=== PATIENT | male | born 1965 | race Caucasian/White ===

== ENCOUNTER 2020-08-30 07:19 | Outpatient (CLI) | payer OTHER, SELFPAY ==
[2020-08-30 07:31] LABS: Hematocrit 43.8 % (42.0-52.0); Hemoglobin 14.7 g/dL (14.0-18.0); Mean Corpuscular HGB Conc 33.6 g/dl (32-36); Mean Corpuscular Hemoglobin 29.5 pg (26-34); Mean Platelet Volume 10.2 fl (7.4-10.4); Platelet Count Result 166 k/mm3 (150-375); Red Blood Count 4.98 M/mm3 (4.6-6.20); White Blood Count 3.9 K/mm3 (4.5-10.0)
[2020-08-30 07:59] LABS: Alanine Aminotransferase 21 U/L (4-50); Albumin Level 4.1 g/dL (3.5-5.1); Alkaline Phosphatase 58 U/L (38-126); Anion Gap 4 mmol/L (8-16); Aspartate Amino Transferase 26 U/L (17-59); Bilirubin,Total 0.6 mg/dL (0.2-1.3); Blood Urea Nitrogen 20 mg/dL (9-20); Calcium 8.9 mg/dL (8.4-10.2); Carbon Dioxide 31 mmol/L (22-30); Chloride 105 mmol/L (98-107); Cholesterol 227 mg/dL (0-200); Estimated Glomerular Filt Rate > 60; Glucose 119 mg/dL (75-110); HDL Direct 54 mg/dL; Sodium 140 mmol/L (137-145); Triglycerides 73 mg/dL (<150)
[2020-08-30 08:11] LABS: LDL Cholesterol Direct 147 mg/dL
[2020-08-30 08:27] LABS: Thyroid Stimulating Hormone Reflex 0.895 uIU/mL (0.465-4.68)
[2020-08-30 12:51] LABS: Prostate Specific Antigen 0.4 ng/mL (< OR = 4.0)
== END 2020-08-30 07:20 | disposition home or self-care (01) ==
LOC: ANHLAB 07:20
PROVIDERS: PCP Family Medicine; Visit Provider Family Medicine
DX: Z00.00 Encounter for general adult medical examination without abnormal findings (principal); R53.83 Other fatigue; E78.2 Mixed hyperlipidemia; Z12.5 Encounter for screening for malignant neoplasm of prostate; F41.9 Anxiety disorder, unspecified
CPT/HCPCS: 36415; 80053; 80061; 84153; 84443; 85027; G0103

== ENCOUNTER 2020-09-28 16:37 | Emergency (ER) | payer OTHER, SELFPAY ==
--- NOTE | ~2020-09-28 | XR_ITS ---
EXAMINATION: XR chest 2V DATE: 09/28/2020 17:50 INDICATION: Inhalation injury of the lungs TECHNIQUE: PA and lateral views of the chest are obtained. COMPARISON: None available FINDINGS: The lungs are free of acute opacities. There is no pleural effusion or pneumothorax. The ca rdiomediastinal silhouette is normal. The visualized bones and soft tissues are unremarkable. IMPRESSION: 1. No acute cardiopulmonary abnormality. Reviewed, dictated and finalized at location A. T TELEGRAPHER
[2020-09-28 16:39] VITALS: BP 142/95; PULSE 107; RESP 23; TEMP 36.2; O2SAT 100
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
[2020-09-28 17:29] LABS: Alveolar/Arterial O2 Gradient 26.9 mmHg; Base Excess ABG 2.1 mEq/l (+/-2.0); Device ROOM AIR; Fractional Inspired Oxygen 21 %; HCO3 ABG 27.3 mEq/l (22.0-26.0); Modified Allen's Test Pass; Oxygen Content ABG 20.6 %vol (16.0-22.0); Oxygen Saturation ABG 94.1 % (95.0-100.0); Oxyhemoglobin 92.8 % THb (90.0-100.0); PCO2 ABG 44.3 mmHg (35.0-45.0); PO2 ABG 69.8 mmHg (80.0-100.0); PO2 FiO2 Ratio Arterial Blood 3.32 %; Site Drawn LEFT RADIAL; Total Hemoglobin 15.8 g/dL (12.0-18.0); pH ABG 7.407 (7.350-7.450)
[2020-09-28 17:34] VITALS: PULSE 95; RESP 16
[2020-09-28] MEDS: ALBUTEROL SULFATE NEB 2.5 MG/0.5 ML INH 5 MG INHALATION (17:34)
[2020-09-28 18:20] VITALS: O2SAT 100
[2020-09-28 18:44] VITALS: BP 118/81; PULSE 93; RESP 20; O2SAT 100
== END 2020-09-28 19:45 | disposition home or self-care (01) ==
PROVIDERS: Emergency Medicine; Emergency Provider Emergency Medicine; PCP Family Medicine
DX: T59.811A Toxic effect of smoke, accidental (unintentional), initial encounter (principal)
CPT/HCPCS: 36600; 71046; 82805; 94640; 99283

== ENCOUNTER 2021-10-24 06:52 | Outpatient (CLI) | payer OTHER, SELFPAY ==
[2021-10-24 07:56] LABS: Basophils Absolute Auto 0.1 K/mm3 (0.0-0.1); Basophils Percent Auto 1.3 % (0.2-1.2); Eosinophils Absolute Auto 0.2 K/mm3 (0-0.3); Eosinophils Percent Auto 5.2 % (0-4.4); Hematocrit 47.5 % (42.0-52.0); Hemoglobin 15.8 g/dL (14.0-18.0); Immature Granulocyte Absolute 0.01 K/mm3 (0.00-0.031); Immature Granulocyte Percent A 0.3 % (0-0.5); Lymphocytes Percent Auto 26.1 % (18.3-44.2); Mean Corpuscular HGB Conc 33.3 g/dl (32-36); Mean Corpuscular Hemoglobin 30.1 pg (26-34); Mean Corpuscular Volume 90.5 fl (80-100); Mean Platelet Volume 10.8 fl (7.4-10.4); Monocytes Absolute Auto 0.4 K/mm3 (0.1-0.6); Monocytes Percent Auto 11.2 % (2.6-8.5); Neutrophils Absolute Auto 2.1 K/mm3 (1.3-6.7); Neutrophils Percent Auto 55.9 % (45.5-73.1); Platelet Count Result 185 k/mm3 (150-375); Red Blood Count 5.25 M/mm3 (4.6-6.20); Red Cell Distribution Width 12.2 % (11.5-14.5); White Blood Count 3.8 K/mm3 (4.5-10.0)
[2021-10-24 09:01] LABS: Hemoglobin A1C 5.2 % (<5.7)
[2021-10-24 09:35] LABS: Alanine Aminotransferase 26 U/L (4-50); Albumin Level 4.5 g/dL (3.5-5.1); Alkaline Phosphatase 74 U/L (38-126); Anion Gap 8 mmol/L (8-16); Aspartate Amino Transferase 27 U/L (17-59); Bilirubin,Total 0.8 mg/dL (0.2-1.3); Blood Urea Nitrogen 13 mg/dL (9-20); Calcium 8.9 mg/dL (8.4-10.2); Carbon Dioxide 29 mmol/L (22-30); Chloride 104 mmol/L (98-107); Cholesterol 276 mg/dL (0-200); Estimated Glomerular Filt Rate > 60; Glucose 102 mg/dL (65-110); HDL Direct 51 mg/dL; Sodium 141 mmol/L (137-145); Triglycerides 124 mg/dL (<150)
[2021-10-24 09:36] LABS: Vitamin D 25 Hydroxy 52.7 ng/mL
[2021-10-24 09:47] LABS: LDL Cholesterol Direct 161 mg/dL
[2021-10-24 10:38] LABS: Folic Acid 8.1 ng/mL (2.76->20)
[2021-10-26 07:27] LABS: PCP NEGATIVE ng/mL (<25)
[2021-10-27 02:42] LABS: Insulin Level Total 7.9 uIU/mL (<=19.6)
[2021-11-06 13:13] LABS: Amphetamines NEGATIVE; Barbiturates NEGATIVE; Marijuana Metabolites NEGATIVE
[2021-11-06 13:14] LABS: Benzodiazepines NEGATIVE; Cocaine Metabolites NEGATIVE
== END 2021-10-24 06:53 | disposition home or self-care (01) ==
LOC: ANHLAB 06:55
PROVIDERS: PCP Family Medicine; Visit Provider Psychiatry & Neurology Psychiatry
DX: F41.1 Generalized anxiety disorder (principal); F10.21 Alcohol dependence, in remission
CPT/HCPCS: 36415; 80053; 80061; 80307; 82306; 82607; 82746; 83036; 83525; 84443; 85025

== ENCOUNTER 2022-03-27 06:58 | Outpatient (CLI) | payer OTHER, SELFPAY ==
[2022-03-27 07:10] LABS: Basophils Percent Auto 0.8 % (0.2-1.2); Eosinophils Absolute Auto 0.2 K/mm3 (0-0.3); Eosinophils Percent Auto 4.6 % (0-4.4); Hematocrit 46.3 % (42.0-52.0); Hemoglobin 15.7 g/dL (14.0-18.0); Immature Granulocyte Absolute 0.01 K/mm3 (0.00-0.031); Immature Granulocyte Percent A 0.2 % (0-0.5); Lymphocytes Absolute Auto 1.09 K/mm3 (0.9-3.2); Mean Corpuscular HGB Conc 33.9 g/dl (32-36); Mean Corpuscular Hemoglobin 29.8 pg (26-34); Mean Platelet Volume 10.4 fl (7.4-10.4); Monocytes Absolute Auto 0.5 K/mm3 (0.1-0.6); Monocytes Percent Auto 11.2 % (2.6-8.5); Neutrophils Absolute Auto 2.9 K/mm3 (1.3-6.7); Neutrophils Percent Auto 60.2 % (45.5-73.1); Platelet Count Result 180 k/mm3 (150-375); Red Blood Count 5.26 M/mm3 (4.6-6.20); Red Cell Distribution Width 12.3 % (11.5-14.5); White Blood Count 4.7 K/mm3 (4.5-10.0)
[2022-03-27 07:20] LABS: Alanine Aminotransferase 21 U/L (6-50); Albumin Level 4.3 g/dL (3.5-5.1); Alkaline Phosphatase 66 U/L (38-126); Anion Gap 5 mmol/L (8-16); Aspartate Amino Transferase 23 U/L (17-59); Bilirubin,Total 0.9 mg/dL (0.2-1.3); Blood Urea Nitrogen 18 mg/dL (9-20); Calcium 9.1 mg/dL (8.4-10.2); Carbon Dioxide 32 mmol/L (22-30); Chloride 103 mmol/L (98-107); Cholesterol 231 mg/dL (0-200); Estimated Glomerular Filt Rate > 60; Glucose 104 mg/dL (65-110); HDL Direct 50 mg/dL; Potassium 3.8 mmol/L (3.4-5.0); Sodium 140 mmol/L (137-145); Triglycerides 143 mg/dL (<150)
[2022-03-27 07:31] LABS: LDL Cholesterol Direct 140 mg/dL
[2022-03-27 07:51] LABS: Prostate Specific Antigen 0.5 ng/mL (< OR = 4.0)
== END 2022-03-27 06:59 | disposition home or self-care (01) ==
LOC: ANHLAB 07:00
PROVIDERS: PCP Family Medicine; Visit Provider Family Medicine
DX: D72.819 Decreased white blood cell count, unspecified (principal); E78.2 Mixed hyperlipidemia; Z00.00 Encounter for general adult medical examination without abnormal findings; Z12.5 Encounter for screening for malignant neoplasm of prostate
CPT/HCPCS: 36415; 80053; 80061; 84153; 85025; G0103

== ENCOUNTER 2022-05-29 07:07 | Outpatient (CLI) | payer OTHER, SELFPAY ==
[2022-06-03 08:54] LABS: Testosterone Total 447 ng/dL (250-1100)
== END 2022-05-29 07:08 | disposition home or self-care (01) ==
PROVIDERS: PCP Family Medicine; Visit Provider Physician Assistant Medical
DX: E29.1 Testicular hypofunction (principal)
CPT/HCPCS: 36415; 84403

== ENCOUNTER 2022-11-27 06:51 | Outpatient (CLI) | payer OTHER, SELFPAY ==
[2022-11-27 07:28] LABS: Hematocrit 45.4 % (42.0-52.0); Hemoglobin 14.9 g/dL (14.0-18.0); Mean Corpuscular HGB Conc 32.8 g/dl (32-36); Mean Corpuscular Hemoglobin 29.7 pg (26-34); Mean Corpuscular Volume 90.4 fl (80-100); Mean Platelet Volume 10.7 fl (7.4-10.4); Platelet Count Result 181 k/mm3 (150-375); Red Blood Count 5.02 M/mm3 (4.6-6.20); Red Cell Distribution Width 12.5 % (11.5-14.5); White Blood Count 4.3 K/mm3 (4.5-10.0)
[2022-11-27 07:40] LABS: Alanine Aminotransferase 30 U/L (6-50); Albumin Level 4.2 g/dL (3.5-5.1); Alkaline Phosphatase 74 U/L (38-126); Anion Gap 5 mmol/L (8-16); Aspartate Amino Transferase 28 U/L (17-59); Bilirubin,Total 0.8 mg/dL (0.2-1.3); Blood Urea Nitrogen 24 mg/dL (9-20); Calcium 8.6 mg/dL (8.4-10.2); Carbon Dioxide 32 mmol/L (22-30); Chloride 104 mmol/L (98-107); Cholesterol 265 mg/dL (0-200); Estimated Glomerular Filt Rate > 60; Glucose 104 mg/dL (65-110); HDL Direct 52 mg/dL; Potassium 4.1 mmol/L (3.4-5.0); Sodium 141 mmol/L (137-145); Triglycerides 115 mg/dL (<150)
[2022-11-27 07:52] LABS: LDL Cholesterol Direct 171 mg/dL
== END 2022-11-27 06:52 | disposition home or self-care (01) ==
LOC: ANHLAB 06:53
PROVIDERS: PCP Family Medicine; Visit Provider Physician Assistant Medical
DX: R53.83 Other fatigue (principal); E78.2 Mixed hyperlipidemia
CPT/HCPCS: 36415; 80053; 80061; 85027

== ENCOUNTER 2023-05-21 07:10 | Outpatient (CLI) | payer OTHER, SELFPAY ==
[2023-05-21 07:52] LABS: Basophils Absolute Auto 0.1 K/mm3 (0.0-0.1); Basophils Percent Auto 0.9 % (0.2-1.2); Eosinophils Absolute Auto 0.2 K/mm3 (0-0.3); Eosinophils Percent Auto 3.7 % (0-4.4); Hematocrit 47.7 % (42.0-52.0); Hemoglobin 15.7 g/dL (14.0-18.0); Immature Granulocyte Absolute 0.02 K/mm3 (0.00-0.031); Immature Granulocyte Percent A 0.4 % (0-0.5); Lymphocytes Absolute Auto 1.01 K/mm3 (0.9-3.2); Lymphocytes Percent Auto 18.5 % (18.3-44.2); Mean Corpuscular HGB Conc 32.9 g/dl (32-36); Mean Corpuscular Hemoglobin 29.3 pg (26-34); Mean Corpuscular Volume 89.2 fl (80-100); Mean Platelet Volume 10.7 fl (7.4-10.4); Monocytes Absolute Auto 0.5 K/mm3 (0.1-0.6); Monocytes Percent Auto 8.6 % (2.6-8.5); Neutrophils Absolute Auto 3.7 K/mm3 (1.3-6.7); Neutrophils Percent Auto 67.9 % (45.5-73.1); Platelet Count Result 173 k/mm3 (150-375); Red Blood Count 5.35 M/mm3 (4.6-6.20); Red Cell Distribution Width 12.3 % (11.5-14.5); White Blood Count 5.5 K/mm3 (4.5-10.0)
[2023-05-21 08:04] LABS: Alanine Aminotransferase 31 U/L (6-50); Albumin Level 4.4 g/dL (3.5-5.1); Alkaline Phosphatase 72 U/L (38-126); Anion Gap 5 mmol/L (8-16); Aspartate Amino Transferase 26 U/L (17-59); Bilirubin,Total 0.9 mg/dL (0.2-1.3); Blood Urea Nitrogen 18 mg/dL (9-20); Calcium 9.1 mg/dL (8.4-10.2); Carbon Dioxide 32 mmol/L (22-30); Chloride 100 mmol/L (98-107); Cholesterol 278 mg/dL (0-200); Estimated Glomerular Filt Rate > 60; Glucose 110 mg/dL (65-110); HDL Direct 55 mg/dL; Potassium 3.8 mmol/L (3.4-5.0); Sodium 137 mmol/L (137-145); Triglycerides 181 mg/dL (<150)
[2023-05-21 08:15] LABS: LDL Cholesterol Direct 162 mg/dL
[2023-05-21 08:34] LABS: Prostate Specific Antigen 1.3 ng/mL (< OR = 4.0)
== END 2023-05-21 07:11 | disposition home or self-care (01) ==
LOC: ANHLAB 07:11
PROVIDERS: PCP Family Medicine; Visit Provider Physician Assistant Medical
DX: Z12.5 Encounter for screening for malignant neoplasm of prostate (principal); E78.2 Mixed hyperlipidemia; R53.83 Other fatigue
CPT/HCPCS: 36415; 80053; 80061; 84153; 85025; G0103

== ENCOUNTER 2023-11-26 06:58 | Outpatient (CLI) | payer OTHER, SELFPAY ==
[2023-11-26 07:37] LABS: Basophils Percent Auto 0.7 % (0.2-1.2); Eosinophils Absolute Auto 0.3 K/mm3 (0-0.3); Eosinophils Percent Auto 6.3 % (0-4.4); Hematocrit 44.9 % (42.0-52.0); Immature Granulocyte Absolute 0.01 K/mm3 (0.00-0.031); Immature Granulocyte Percent A 0.2 % (0-0.5); Lymphocytes Percent Auto 22.4 % (18.3-44.2); Mean Corpuscular HGB Conc 33.4 g/dl (32-36); Mean Corpuscular Hemoglobin 29.9 pg (26-34); Mean Corpuscular Volume 89.4 fl (80-100); Mean Platelet Volume 10.5 fl (7.4-10.4); Monocytes Absolute Auto 0.6 K/mm3 (0.1-0.6); Monocytes Percent Auto 12.6 % (2.6-8.5); Neutrophils Absolute Auto 2.6 K/mm3 (1.3-6.7); Neutrophils Percent Auto 57.8 % (45.5-73.1); Platelet Count Result 182 k/mm3 (150-375); Red Blood Count 5.02 M/mm3 (4.6-6.20); Red Cell Distribution Width 13.1 % (11.5-14.5); White Blood Count 4.5 K/mm3 (4.5-10.0)
[2023-11-26 07:49] LABS: Alanine Aminotransferase 25 U/L (6-50); Albumin Level 4.4 g/dL (3.5-5.1); Alkaline Phosphatase 76 U/L (38-126); Anion Gap 6 mmol/L (4-12); Aspartate Amino Transferase 25 U/L (17-59); Bilirubin,Total 0.7 mg/dL (0.2-1.3); Blood Urea Nitrogen 19 mg/dL (9-20); Carbon Dioxide 28 mmol/L (22-30); Chloride 107 mmol/L (98-107); Cholesterol 274 mg/dL (0-200); Estimated Glomerular Filt Rate > 60; Glucose 107 mg/dL (65-110); HDL Direct 62 mg/dL; Potassium 3.9 mmol/L (3.4-5.0); Sodium 141 mmol/L (137-145); Triglycerides 115 mg/dL (<150)
[2023-11-26 08:00] LABS: LDL Cholesterol Direct 169 mg/dL
== END 2023-11-26 06:59 | disposition home or self-care (01) ==
LOC: ANHLAB 06:59
PROVIDERS: PCP Family Medicine; Visit Provider Physician Assistant Medical
DX: R53.83 Other fatigue (principal); E78.2 Mixed hyperlipidemia; F41.9 Anxiety disorder, unspecified; Z00.00 Encounter for general adult medical examination without abnormal findings
CPT/HCPCS: 36415; 80053; 80061; 84443; 85025

== ENCOUNTER 2024-05-19 07:12 | Outpatient (CLI) | payer OTHER, SELFPAY ==
[2024-05-19 07:51] LABS: Basophils Absolute Auto 0.1 K/mm3 (0.0-0.1); Basophils Percent Auto 1.2 % (0.2-1.2); Eosinophils Absolute Auto 0.2 K/mm3 (0-0.3); Eosinophils Percent Auto 3.7 % (0-4.4); Hematocrit 46.2 % (42.0-52.0); Hemoglobin 15.6 g/dL (14.0-18.0); Immature Granulocyte Absolute 0.01 K/mm3 (0.00-0.031); Immature Granulocyte Percent A 0.2 % (0-0.5); Lymphocytes Absolute Auto 0.77 K/mm3 (0.9-3.2); Mean Corpuscular HGB Conc 33.8 g/dl (32-36); Mean Corpuscular Hemoglobin 30.4 pg (26-34); Mean Corpuscular Volume 89.9 fl (80-100); Mean Platelet Volume 10.3 fl (7.4-10.4); Monocytes Absolute Auto 0.4 K/mm3 (0.1-0.6); Monocytes Percent Auto 8.9 % (2.6-8.5); Neutrophils Absolute Auto 2.9 K/mm3 (1.3-6.7); Platelet Count Result 184 k/mm3 (150-375); Red Blood Count 5.14 M/mm3 (4.6-6.20); Red Cell Distribution Width 12.2 % (11.5-14.5); White Blood Count 4.3 K/mm3 (4.5-10.0)
[2024-05-19 08:02] LABS: Alanine Aminotransferase 22 U/L (6-50); Albumin Level 4.3 g/dL (3.5-5.1); Alkaline Phosphatase 73 U/L (38-126); Anion Gap 7 mmol/L (4-12); Aspartate Amino Transferase 20 U/L (17-59); Bilirubin,Total 0.8 mg/dL (0.2-1.3); Blood Urea Nitrogen 18 mg/dL (9-20); Calcium 8.9 mg/dL (8.4-10.2); Carbon Dioxide 30 mmol/L (22-30); Chloride 101 mmol/L (98-107); Cholesterol 282 mg/dL (0-200); Estimated Glomerular Filt Rate > 60; Glucose 103 mg/dL (65-110); HDL Direct 60 mg/dL; Potassium 4.1 mmol/L (3.4-5.0); Sodium 138 mmol/L (137-145); Triglycerides 131 mg/dL (<150)
[2024-05-19 08:14] LABS: LDL Cholesterol Direct 169 mg/dL
[2024-05-19 08:25] LABS: Iron 96 ug/dL (49-181)
[2024-05-19 08:33] LABS: Prostate Specific Antigen 0.8 ng/mL (< OR = 4.0)
[2024-05-19 08:34] LABS: Percent Iron Saturation 27 % (20-50)
[2024-05-19 08:44] LABS: Free T4 Free Thyroxine 0.57 ng/mL (0.78-2.19)
== END 2024-05-19 07:13 | disposition home or self-care (01) ==
LOC: ANHLAB 07:13
PROVIDERS: PCP Family Medicine; Visit Provider Student in an Organized Health Care Education/Training Program
DX: Z00.00 Encounter for general adult medical examination without abnormal findings (principal); F32.9 Major depressive disorder, single episode, unspecified; F41.9 Anxiety disorder, unspecified; G25.81 Restless legs syndrome; N40.0 Benign prostatic hyperplasia without lower urinary tract symptoms; R53.83 Other fatigue; Z12.5 Encounter for screening for malignant neoplasm of prostate; E78.5 Hyperlipidemia, unspecified
CPT/HCPCS: 36415; 80053; 80061; 82728; 83540; 83550; 84153; 84439; 84443; 85025; G0103

== ENCOUNTER 2024-11-24 07:02 | Outpatient (CLI) | payer OTHER, SELFPAY ==
[2024-11-24 08:33] LABS: Alanine Aminotransferase 23 U/L (6-50); Albumin Level 4.4 g/dL (3.5-5.1); Alkaline Phosphatase 70 U/L (38-126); Anion Gap 6 mmol/L (4-12); Aspartate Amino Transferase 24 U/L (17-59); Bilirubin,Total 1.2 mg/dL (0.2-1.3); Blood Urea Nitrogen 15 mg/dL (9-20); Carbon Dioxide 31 mmol/L (22-30); Chloride 101 mmol/L (98-107); Cholesterol 209 mg/dL (0-200); Estimated Glomerular Filt Rate > 60; Glucose 103 mg/dL (65-110); HDL Direct 59 mg/dL; Sodium 138 mmol/L (137-145); Triglycerides 70 mg/dL (<150)
[2024-11-24 08:44] LABS: LDL Cholesterol Direct 103 mg/dL
[2024-11-24 08:49] LABS: Free T4 Free Thyroxine 0.78 ng/dL (0.78-2.19)
[2024-11-24 09:04] LABS: Thyroid Stimulating Hormone 0.644 uIU/mL (0.465-4.680)
--- OUTSIDE RECORDS SUMMARY | 2024-11-24 15:49 | XMS_ITS | Clinical Summary ---
Author Organization [facility] Address [address] [place] [address] Care Team Providers Care Fiber Optics Engineer Name Role Phone Unavailable Primary Care Provider Unavailabl e Social History Tobacco Use Types Packs/Day Years Used Date Smoking Tobacco: Never Assessed Sex and Gender Information Value Date Recorded Sex Assigned at Not on file Legal Sex Male 7:02 PM CDT Gender Identity Not on file Sexual Orientation Not on file Plan of Treatment Health Maintenance Due Date Last Done Comments Colorectal Cancer Screening Colonoscopy (10 Years) 1964 Annual Physical 1967 Hepatitis C 1982 DTaP, Tdap and Td Vaccines ( 1 - Tdap) 1983 Pneumococcal Vaccine: 50+ Ye ars (1 of 1 - PCV) 2014 Zoster Vaccines (1 of 2) 2014 COVID-19 Vaccine ( - 2023-2 5 season) 2024 RSV Immunization or 60+ Years (1 - 1-dose 75+ series) 2039 Meningococcal B Vaccine Aged Out No l onger eligible based on patient's age to complete this topic Meningococcal Vaccine Aged Out No chula clif eligible based on patient's age to complete this topic RSV Immunizations Under 20 Months Aged Out No longer eligible based on patient's age to complete this topic
--- OUTSIDE RECORDS SUMMARY | 2024-11-24 15:49 | XMS_ITS | Continuity of Care Document ---
Author Organization [facility] Address [address] [place] [address] Phone Care Team Providers Care Lease Out Man Name Role Phone Maurice Mock MD Unavailable [...] Providers Copied on Encounter [facility] , [address], [address], [place] tel:[phone] [facility] No Information 5 Nish Richards. [address] [place], [place], [id number] . tel: [phone] OFFICE CONSULTATION [facility] , [address], [address], [place] tel:[phone] [facility] Right shoulder pain (chief complaint) Osteoarthros is, shoulder region 5-201 5 Chuy Meyers. [address], [id number] . tel: [phone] Referring Provider: Mauricio Rodriguez[address] [place], [address] . tel:[phone] Family History Family Member Type Diagnosis Age At Onset Father Problem (finding) Cardiovascular disease Father Problem (finding) prostate cancer Payers Payer name Insurance type Covered alliance party ID Authoriza tion(s) No Information Social History [...]
--- OUTSIDE RECORDS SUMMARY | 2024-11-24 15:49 | XMS_ITS | Clinical Summary ---
Author Organization [facility] Address [address] [place] [address] Care Team Providers Care Certified Residential Medication Aide Name Role Phone Unavailable Primary Care Provider Unavailabl e Source Comments [facility],non-owned Affiliates and Associated Physician Practices is amultiple site organization consisting of ambulatory clinics and hospital sitesin [place], [place], [place] and [place]. This disclosure is being madepursuant to the Care Everywhere program and may not contain all information available regarding this patient. Last updated 18.[facility] Social History Tobacco Use Types Packs/Day Years Used Date Smoking Tobacco: Never Assessed Sex and Gender Information Value Date Recorded Sex Assigned at Not on file Legal Sex Male 2:26 PM CDT Gender Identity Not on file Sexual Orientation Not on file Plan of Treatment Health Maintenance Due Date Last Done Comments COLOGUARD (AGES 45-75) - COL ON CA SCREENING 1964 COLON MONITORING 1964 COLONOSCOPY - COLON CA SCREENING 1964 CT COLONOGRAPHY - COLON CA SCREENING 1964 Colorectal Cancer Screening 1964 FIT - COLON CA SCREENING 1964 FLEX SIG - COLON CA SCREENING 1964 LIPID TESTING 1964 HIV SCREENING 1979 HEPATITIS C SCREENING 04/20/1982 DTAP/TDAP/TD VACCINES (1 - Tdap) 1983 PNEUMOCOCCAL VACCINE 50+ (1 of 1 - PCV) 2014 ZOSTER VACCINE (1 of 2) 2014 COVID-19 VACCINE ( - 2023-2 5 season) 2024 DEPRESSION SCREENING 07/25/2024 INFLUENZA VACCINE (Season Ended) 2025 Respiratory Syncytial Virus (RSV) Vaccine Pt: or over 60 yrs (1 - 1-dose 75+ series) 2039 HEPATITIS B VACCINE Aged Out No longe r eligible based on patient's age to complete this topic HIB VACCINE Aged Out No longer eligi ble based on patient's age to complete this topic HPV VACCINE Aged Out No longer eligi ble based on patient's age to complete this topic MENINGOCOCCAL (Group B) VACC INE SHARED DECISION-MAKING Aged Out No longer eligibl e based on patient's age to complete this topic MENINGOCOCCAL GROUPS A/C/Y/W VACCINE Aged Out No longer eligible b ased on patient's age to complete this topic Insurance [facility]
--- OUTSIDE RECORDS SUMMARY | 2024-11-24 15:49 | XMS_ITS | Encounter Summary ---
Author Organization [facility] Address [address] [place] [address] Care Team Providers Care Mechanical Integrity Engineer Name Role Phone Unavailable Primary Care Provider Unavailabl e Encounter Details Date Type Department Care Team (Late st Contact Info) Description 04/02/2024 Lab Requisition [facility] - DermPath Lab [address] [facility] [place] [address] Emiliana Gabriel DO [address] [facility] [address] [place] [address] Social History Tobacco Use Types Packs/Day Years Used Date Smoking Tobacco: Never Assessed Sex and Gender Information Value Date Recorded Sex Assigned at Not on file Legal Sex Male 2:26 PM CDT Gender Identity Not on file Sexual Orientation Not on file documented as of this encounter Plan of Treatment Not on file documented as of this encounter Procedures Procedure Name Priority Date/Time Associated Diagnosis Comments DERMATOPATHOLOGY Routine 04/02/2024 2:13 PM CDT documented in this encounter Results * DERMATOPATHOLOGY (04/02/2024 2:13 PM CDT) Case Report Dermatopathology Report Case: [id number] Authorizing Provider: Emiliana Gabriel DO Collected: 04/02/2024 02:13 PM Ordering Location: [facility] - Received: 04/03/2024 01:19 PM DermPath Lab Pathologist: Shamika Elliott MD Specimen: Skin, posterior neck 4 4:42 PM CDT DERMATOPATHOLOGY LABORATORY Final Diagnosis Specimen A. SKIN, posterior neck: HEALING SKIN CHANGES (L90.5) 4 4:42 PM CDT DERMATOPATHOLOGY LABORATORY Clinical History PN r/o NMSC 4 4:42 PM CDT DERMATOPATHOLOGY LABORATORY Gross Description Specimen A: Received is one formalin filled container labeled with the patient's name and designated posterior neck. The specimen consists of a shave biopsy measuring 10x7x1 mm. Jar 0. 4 4:42 PM CDT DERMATOPATHOLOGY LABORATORY Microscopic Description Specimen A. SKIN, posterior neck: There is epidermal hyperplasia beneath which there are vascular proliferation, fibroblasts, and an edematous stroma. 4 4:42 PM CDT DERMATOPATHOLOGY LABORATORY Disclaimer An external and internal positive and negative controls are appropriate for the histochemical, immunohistochemical and immunofluorescence stain(s) in this case (if any), except where stated explicitly. The performance characteristics of the stain(s) cited in this report were developed and its performance characteristic determined by the Dermatopathology Laboratory at [facility], directed by Dr. Nestor Elliott. These tests need not be, and therefore are not, approved by the [place] Food and Drug Administration. The tests are used for clinical purposes. Billing Codes Specimen Charges Stain Charges 39463 1 4 4:42 PM CDT DERMATOPATHOLOGY LABORATORY Embedded Images 4 4:42 PM CDT DERMATOPATHOLOGY LABORATORY Pathology/Cytolo gy TISSUE SPECIMEN FROM SKIN / Unknown 04/02/2024 2:13 PM CDT 04/03/2024 1:19 PM CDT us Emiliana Gabriel DO LAB - PATHOLOGY/CYTOLOGY ORDERABLES Final Result DERMATOPATHOLOGY LABORATORY [facility] - Department of Dermatology [address], [address] [phone] documented in this encounter Visit Diagnoses Not on filedocumented in this encounter
--- OUTSIDE RECORDS SUMMARY | 2024-11-24 15:49 | XMS_ITS | Referral Summary ---
Author Organization [facility] Address [address] [place] [address] Care Team Providers Care Service Establishment Attendant Name Role Phone Elliot Palomino MD Primary Care Provider [phone] Encounters Date Type Department Care Team Description 10/25/2024 Documentation [facility] Surgery [address] [place] [address] Daisy Schuler, TONNY 10/25/2024 Telephone [facility] Surgery [address] [place] [address] Daisy Schuler, RN from Last 3 Months Allergies No known active allergies Medications rosuvastatin (CRESTOR) 5 mg tablet Take 1 tablet (5 mg total) by mouth daily Active busPIRone (BUSPAR) 10 mg tabletIndications: Generalized Anxiety Disorder Take 1 tablet (10 mg total) by mouth 2 (two) times a day Active venlafaxine (EFFEXOR) 75 mg tablet Take 1 tablet (75 mg total) by mouth 2 (two) times a day Active buPROPion SR (WELLBUTRIN SR) 100 mg 12 hr tablet Take 1 tablet (100 mg total) by mouth 2 (two) times a day Active clonazePAM (KlonoPIN) 0.5 mg disintegrating tablet Take 1 tablet (0.5 mg total) by mouth 2 (two) times a day as needed for seizures Active esomeprazole DR (NexIUM) 40 mg capsule Take 1 capsule (40 mg total) by mouth daily before breakfast Active vitamin b complex tablet Take 1 tablet by mouth daily Active Active Problems No known active problems Social History Tobacco Use Types Packs/Day Years Used Date Smoking Tobacco: Never Smokeless Tobacco: Never Tobacco Cessation:Counseling Given: Not Answered AUDIT-C Answer Date Recorded Q1: How often do you have a drink containing alc ohol? Monthly or less 06/11/2024 Average Number of Drinks Not on file 024 Frequency of Binge Drinking Not on file 05/25 Sex and Gender Information Value Date Recorded Sex Assigned at Not on file Legal Sex Male 4:24 AM OVERHAULER HELPER Gender Identity Not on file Sexual Orientation Not on file Last Filed Vital Signs Vital Sign Reading Time Taken Comments Blood Pressure 128/82 06/11/2024 2:38 PM OVERHAULER HELPER Pulse 95 06/11/2024 2:38 PM OVERHAULER HELPER Temperature 36 C (96.8 F) 06/11/2024 2:38 PM OVERHAULER HELPER Respiratory Rate 17 06/11/2024 2:38 PM OVERHAULER HELPER Oxygen Saturation 100% 06/11/2024 2:38 PM OVERHAULER HELPER Inhaled Oxygen Concentration - - Weight 80.5 kg (177 lb 8 oz) 06/11/2024 2:38 PM OVERHAULER HELPER Height 169 cm (5' 6.54 ) 06/11/2024 2:38 PM OVERHAULER HELPER Body Mass Index 28.19 06/11/2024 2:38 PM OVERHAULER HELPER Plan of Treatment Not on file Insurance [facility] HMO/PPO Address: [facility] [address] [place] [address] [facility] HMO/PPO [place] [address] Care Teams Service Establishment Attendant Relationship Specialty Start Date End Date Elliot Palomino MD [address] [place] [address] PCP - General Gastroenterology 02/28/24
--- OUTSIDE RECORDS SUMMARY | 2024-11-24 15:49 | XMS_ITS | Clinical Summary ---
Author Organization [facility] Address [address] [place] [address] Care Team Providers Care Media Arts Professor Name Role Phone Elliot Palomino MD Primary Care Provider Allergies No known active allergies Medications rosuvastatin [...] Active Active Problems No known active problems Encounters Date Type Department Care Team Description 10/25/2024 Documentation [facility] Surgery [address] [place] [address] [address] [place] [address] Daisy Schuler RN 10/25/2024 Telephone [facility] Surgery [address] [place] [address] [address] [place] [address] Daisy Schuler RN from Last 3 Months Surgical History Surgery Date Site/Laterality Comments KNEE SURGERY SHOULDER SURGERY Medical History Medical History Date Comments ED (erectile dysfunction) Excessive urination at night Anxiety Depression Family History Medical History Relation Name Comments Prostate cancer Father Colon cancer Maternal Grandfather 60s Breast cancer Maternal Grandmother Pancreatic cancer Mother Relation Name Status Comments Father Maternal Grandfather Maternal Grandmother Mother Social History Tobacco Use Types Packs/Day Years [...] on file Legal Sex Male 4:24 AM FLUID JET CUTTER OPERATOR Gender Identity Not on file Sexual Orientation Not on file Obstetrics History Last Filed Vital Signs Vital Sign Reading Time Taken Comments Blood Pressure 128/82 06/11/2024 2:38 PM FLUID JET CUTTER OPERATOR Pulse 95 06/11/2024 2:38 PM FLUID JET CUTTER OPERATOR Temperature 36 C (96.8 F) 06/11/2024 2:38 PM FLUID JET CUTTER OPERATOR Respiratory Rate 17 06/11/2024 2:38 PM FLUID JET CUTTER OPERATOR Oxygen Saturation 100% 06/11/2024 2:38 PM FLUID JET CUTTER OPERATOR Inhaled Oxygen Concentration - - Weight 80.5 kg (177 lb 8 oz) 06/11/2024 2:38 PM FLUID JET CUTTER OPERATOR Height 169 cm (5' 6.54 ) 06/11/2024 2:38 PM FLUID JET CUTTER OPERATOR Body Mass Index 28.19 06/11/2024 2:38 PM FLUID JET CUTTER OPERATOR Plan of Treatment Health Maintenance Due Date Last Done Comments Colon Cancer Screening-Colonoscopy 1964 Depression Screening 1964 Hepatitis C Screening 1964 Prostate Cancer Screening-PSA 1964 DTaP/Tdap/Td Vaccine (1 - Tdap) 1975 Hepatitis B Screening 1982 Regular Well Visit/Exam 18-64 1982 Zoster Vaccine (1 of 2) 2014 Covid-19 Vaccine (3 - 2023-2 5 season) 2024 11/05/2021, 09/26/2020 Influenza Vaccine Completed 05/15/2024, 05/09/2023 Pneumococcal vaccine <65 Aged Out No longer eligible based on patient's age to complete this topic Insurance [facility]/[place]: [place] [address] [facility]ICE [facility]US [facility] HMO/PPO Address: [place] [address] Care Teams Media Arts Professor Relationship Specialty Start Date End Date Elliot Palomino MD [address] [place] [address] PCP - General Gastroenterology 02/28/24
== END 2024-11-24 07:03 | disposition home or self-care (01) ==
LOC: ANHLAB 07:04
PROVIDERS: PCP Family Medicine; Visit Provider Student in an Organized Health Care Education/Training Program
DX: E78.5 Hyperlipidemia, unspecified (principal); R53.83 Other fatigue; F32.9 Major depressive disorder, single episode, unspecified; F41.9 Anxiety disorder, unspecified
CPT/HCPCS: 36415; 80053; 80061; 84439; 84443

== ENCOUNTER 2025-05-25 08:01 | Outpatient (CLI) | payer OTHER, SELFPAY ==
--- OUTSIDE RECORDS SUMMARY | 2014-12-19 03:43 | XMS_ITS | Continuity of Care Document ---
Author Organization [facility] Address [address] [place] [address] Phone Care Team Providers Care Occupational Rehabilitation Aide Name Role Phone Maurice Mock MD Unavailable Unavailable Allergies, Adverse Reactions, Alerts Substance Reaction Status Criticality No Known Allergies Active No Inform ation Medications Medication Instructions Dosage Effective Dates (start - stop) Status Comments MELOXICAM 7.5 MG TABLET TAKE 1 TABLET BY MOUTH EVERY DAY WITH FOOD - Active NEXIUM (unknown strength) Not Available - Active meloxicam 7.5 mg tablet take 1 tablet (7.5MG) by oral route every day with food - No Longer Active Procedures Procedure Date OFFICE CONSULTATION Advance Directives Directive Yes / No Effective Date File Name No Information Encounters Encounter Description Practice Location Reason(s) For Visit Diagnoses Date Provider Providers Copied on Encounter [facility] , [address], [address], [place] [phone] [facility] No Information 5 Nish Richards. [address] [place], [place], [id number] . tel: [phone] OFFICE CONSULTATION [facility] , [address], [address], [place] tel:[phone] [facility] Right shoulder pain (chief complaint) Osteoarthros is, shoulder region 5-201 5 Chuy Meyers. [address], [id number] . tel: [phone] Referring Provider: Mauricio Rodriguez[address] [place], [address] . tel:[phone] Family History Family Member Type Diagnosis Age At Onset Father Problem (finding) Cardiovascular disease Father Problem (finding) prostate cancer Payers Payer name Insurance type Covered libertarian ID Authoriza tion(s) No Information Social History Type Description Quantity Date Captured Comments Sex Male Smoking Status No Information Chief Complaint And Reason For Visit No Information Reason For Referral Reason For Referral No Information Plan Of Treatment Date Type Action Status Referral Ordered: RADEX ACROMCLAV JTS BI +-W8ED DISTRCJ ordered Referral Ordered: RADEX RICARDO COMPL MINIMUM 2 VIEWS RT ordered History Of Present Illness Encounter Date Complaint History Of Prese nt Illness Right shoulder pain Functional Status Date Functional Assessmen t No Information Instructions Date Instruction Additional Infor mation Take medication as directed. Rel ated to Osteoarthrosis, shoulder region Discussed treatment options Rela mariangel to Osteoarthrosis, shoulder region Call for increase in pain Relate d to Osteoarthrosis, shoulder region Assessments Type Assessment Date No Information Patient Care Teams Name Effective Dates (start - stop) Status Members No Information
--- OUTSIDE RECORDS SUMMARY | 2023-12-21 10:45 | XMS_ITS ---
Author Organization [facility] [employer] [facility] Address [address] [place] [address] [address] [facility] [address] [place] [address] Care Team Providers Care Automobile Mechanic Helper Name Role Phone Geronimo SANCHEZ, Jadyn Primary Care Provider Camilla Aviles Unavailable [phone] Dianne Olsen Unavailable [phone] Social History Sex Assigned At : Social History Observation Description Sex Assigned At Female Encounters Encounter Location Date Provider Diagnosis [facility] [place] [address] [facility] [address] [place] [address] 12/21/2023 Dianne Olsen Plan Of Treatment Next Appt Details Provider Name:Haley harmon, 07/01/2025 04:00:00 PM, [address], [facility] [address], [place], [address], Progress Notes * CHRISTINA SERVINDOB:1965 (60 yo M)Acc No.[id number]:12/21/2023 Progress Notes Patient: CHRISTINA PIERRE Provider: PRECIOUS STOUT :1965 A ge:58 Y S ex:Male Date:12/21/2023 Address:[address] [place] [id number] Pcp:Jadyn Melton MD Billing Information: * Procedure Codes: * Electronic signature of PRECIOUS Langley on 05/25/2025 at 08:05 AM CDT Sign off status: Pending * Provider: ANNA STOUTHNP Date: 0 12/21/2023 Generated for Alison nevarez/Manuela/Jamarcus on: 1 07/25/2024 08:05 AM CDT
--- OUTSIDE RECORDS SUMMARY | 2025-05-24 11:00 | XMS_ITS ---
Author Organization [facility] Address [address] [place] [address] Care Team Providers Care Warehouseman Name Role Phone Jadyn Melton MD Primary Care Provider Camilla Aviles Unavailable [phone] Haley Singh Unavailable [phone] Allergies No Known Allergies REASON FOR VISIT 3 month f/u Medications Medication SIG (Take, Route, Frequency, Duration) Notes Start Date End Date Status clonazePAM 0.5 MG Tablet 1 tablet Oral T wice a day; Duration: 30 days 05/24/2025 Active Thiamine HCl 100 MG Tablet Oral; Duration: 30 Days Not-Taking Venlafaxine HCl ER 75 MG Capsule Extended Release 24 Hour 3 capsule every mornining Oral Once a day; Duration: 30 days Active Rosuvastatin Calcium 5 MG Tablet TAKE 1 TABLET BY MOUTH EVERY DAY Oral Once a day; Duration: 30 days Active busPIRone HCl 10 MG Tablet 1 tablet Oral Twice a day; Duration: 30 days As needed Active Prazosin HCl 1 MG Capsule 1 capsule at bedtime Orally Once a day; Duration: 30 days 05/24/2025 06/23/2025 Active buPROPion HCl ER (XL) 300 MG Tablet Extended Release 24 Hour 1 tablet in the morning Orally Once a day; Duration: 30 days Active traZODone HCl 50 MG Tablet 0.5 tablet at bedtime Oral Once a day; Duration: 30 days Active Esomeprazole Magnesium 40 MG Capsule Delayed Release 1 capsule 1/2 to 1 hour before morning meal Oral Once a day; Duration: 90 days Active Vitamin B-1 100 MG Tablet 1 tablet in the morning Oral Once a day; Duration: 90 days 05/30/2025 Active Social History Tobacco Use: Social History Observation Description Date Details (start date - stop date) Never Smoker NA - NA Sex Assigned At : Social History Observation Description Sex Assigned At Female Social History Miscellaneous: Social Info Question Answer Notes Safety issues: Do you feel safe at home? Yes Household: Social Info Question Answer Notes Household Marital status: Number of adults in household: 2 Number of children in household: 3 Drug/Alcohol: Social Info Question Answer Notes Drugs Have you used drugs other than those for medical reasons in the past 12 months? No AUDIT-C (Standard) Did you have a drink containing alcohol in the past year? 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 Den ies Do you drink alcohol? 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 [employer], previously worked in [employer] Vital Signs Blood pressure systolic 102 mm Hg 05/24/20 25 Blood pressure diastolic 72 mm Hg 025 Heart Rate 121 /min 05/24/2025 Height 67.00 in 05/24/2025 Weight 175 lbs 05/24/2025 BMI 27.41 kg/m2 05/24/2025 Height-cm 170.18 cm 05/24/2025 Weight-kg 79.38 kg 05/24/2025 Encounters Encounter Location Date Provider Diagnosis [facility] [address] [address] 05/24/2025 Haley Singh MDD (recurrent major depressive disorder) in remission F33.40 ; Generalized anxiety disorder F41.1 and Insomnia, unspecified type G47.00 Assessments Encounter Date Diagnosis (ICD Code) Assessment Notes Treatment Notes Treatment Clinical Notes Section Notes 05/24/2025 MDD (recurrent major depressive disorder) in remission (ICD-10 - F33.40) 05/24/2025 Generalized anxiety disorder (ICD-10 - F41.1) Persistent anxiety and feeling on edge, 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 Trouble adjusting to aging and reflecting on past experiences. Patient prefers to reduce or discontinue some medications and does not want to increase doses. Has been on medications for anxiety for several years. - Continue Wellbutrin 300 mg as prescribed. - Continue Venlafaxine 75 mg as prescribed. - Continue Commencement 0.5 mg twice a day as prescribed. - Continue Fuspro 10 mg as prescribed. 05/24/2025 Insomnia, unspecified type (ICD-10 - G47.00) Difficulty sleeping, frequent dreams and nightmares, and daytime drowsiness. Trouble winding down after long workdays. Has tried melatonin and Trazodone with inconsistent results. Previously tried Seroquel and Quetiapine for sleep, discontinued due to side effects. Open to trying new options for nightmares. - Continue Trazodone 50 mg as needed for sleep. - Start Prazosin for nightmares, monitor for lightheadedness and dizziness. Plan Of Treatment Medication Medication Name Sig Start Date Stop Date Notes clonazePAM 0.5 MG Tablet 1 tablet Oral T wice a day; Duration: 30 days 05/24/2025 Venlafaxine HCl ER 75 MG Capsule Extended Release 24 Hour 3 capsule every mornining Oral Once a day; Duration: 30 days busPIRone HCl 10 MG Tablet 1 tablet Oral Twice a day; Duration: 30 days Prazosin HCl 1 MG Capsule 1 capsule at b edtime Orally Once a day; Duration: 30 days 05/24/2025 06/23/2025 buPROPion HCl ER (XL) 300 MG Tablet Extended Release 24 Hour 1 tablet in the morning Orally Once a day; Duration: 30 days traZODone HCl 50 MG Tablet 0.5 tablet at bedtime Oral Once a day; Duration: 30 days Treatment Notes Assessment Notes Generalized anxiety disorder Persistent anxiety and feeling on edge, 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 Trouble adjusting to aging and reflecting on past experiences. Patient prefers to reduce or discontinue some medications and does not want to increase doses. Has been on medications for anxiety for several years. - Continue Wellbutrin 300 mg as prescribed. - Continue Venlafaxine 75 mg as prescribed. - Continue Commencement 0.5 mg twice a day as prescribed. - Continue Fuspro 10 mg as prescribed. Insomnia, unspecified type Difficulty sleeping, frequent dreams and nightmares, and daytime drowsiness. Trouble winding down after long workdays. Has tried melatonin and Trazodone with inconsistent results. Previously tried Seroquel and Quetiapine for sleep, discontinued due to side effects. Open to trying new options for nightmares. - Continue Trazodone 50 mg as needed for sleep. - Start Prazosin for nightmares, monitor for lightheadedness and dizziness. Next Appt Details Follow Up: 6 Weeks, Reason: Provider Name:Haley harmon, 07/01/2025 04:00:00 PM, [address] [facility] [address], [place], [address], History and Physical Notes * HPI (History of Present Illness) Category Sub-Category Detail Notes Category Not es History of Presenting Problem Depression screening done Christina Servin, a 60-year-old male, presented for a chronic condition follow-up focused on anxiety and sleep disturbances. 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 He reflected on the challenges of aging, coping with past experiences, and the stressors associated with his professional environment. Despite these ongoing struggles, he expressed a desire to reduce or discontinue some of his medications and was clear that he did not wish to increase any doses at this time. 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 In addition to anxiety, he reported significant sleep disturbances, including difficulty falling asleep, frequent dreams and nightmares, and daytime drowsiness. These issues are compounded by his demanding work schedule and the inability to unwind after long days. He has experimented with various sleep aids, such as melatonin and Trazodone, but found their effects inconsistent and discontinued some due to adverse reactions. He denied any current blood pressure or cholesterol problems. His history includes previous trials of Seroquel and Quetiapine for sleep, which were stopped due to side effects. He continues to use melatonin and Trazodone as needed and remains open to exploring new options for managing nightmares. His spouse, a school nurse, and his long work hours further contextualize his ongoing sleep challenges. Depression screening PHQ-9 Little interest or pleasure in doing things: Not at all Feeling down, depressed, or hopeless: No t at all Trouble falling or staying asleep, or sl eeping too much: Not at all Feeling tired or having little energy: N ot at all Poor appetite or overeating: Not at all Feeling bad about yourself o r that you are a failure, or have let yourself or your family down: Not at all Trouble concentrating on thi ngs, such as reading the newspaper or watching television: Several days Moving or speaking so slowly that other people could have noticed; or the opposite, being so fidgety or restless that you have been moving around a lot more than usual: Not at all Thoughts that you would be b mini off or of hurting yourself in some way: Not at all Total Score: 1 Interpretation: Minimal Depression Intervention Depression Screening Findings: N egative Follow-Up for Depression: Psychiatric fo llow-up Suicide Risk Assessment Performed: --laine e Depression Screening NAVNEET-7 (2018 Edition) Feelin g nervous, anxious, or on edge: Several days Not being able to stop or control worryi ng: Not at all Worrying too much about different things : Not at all Trouble relaxing: Not at all Being so restless that it is hard to sit still: Not at all Becoming easily annoyed or irritable: No t at all Feeling afraid as if something awful miles ht happen: Not at all Total NAVNEET-7 Score: 1 If you checked any problems, how difficult have they made it for you to do your work, take care of things at home, or get along with other people?: Not difficult at all Interpretation of Total: (0 to 4) No Anx iety Examination Category Sub-Category Detail Notes Category Not es Psychiatry Appearance: well-groomed, well-nourished , ... Attitude: cooperative Psychomotor activity: within normal rang e Attention: good Degree of awareness of surroundings: wit hin normal limits Orientation: awake, alert and rusty ented x 3 Affect / mood: appropriate, full ra nge Speech / language: appropriate pitch/mo dulation, clear and coherent, normal rate, volume, and articulation (RVR), proper grammar used Insight: good Judgement: good Thought process: intact Thought content: appropriate Perceptual disorders: no perceptual diso rder noted Suicidal ideation: none Intellectual functioning: no impairment noted Memory status: no impairment noted Delusions: no Hallucinations: no Progress Notes * JESSICA SERVIN:1965 (60 yo M)Acc No.[id number]:05/24/2025 Patient: CHRISTINA PIERRE Provider: Melisa Singh :1965 A ge:60 Y S ex:Male Date:05/24/2025 Address:[address] [place], [place] [id number] Pcp:Jadyn Melton MD Subjective: * Chief Complaints: * 3 month f/u * HPI: D epression screening: PHQ-9 L ittle interest or pleasure in doing things?Not at all F eeling down, depressed, or hopeless N ot at all T rouble falling or staying asleep, or sleeping too much N ot at all F eeling tired or having little energy N ot at all P oor appetite or overeating N ot at all F eeling bad about yourself or that you are a failure, or have let yourself or your family down N ot at all T rouble concentrating on things, such as reading the newspaper or watching television S ever days M oving or speaking so slowly that other people could have noticed; or the opposite, being so fidgety or restless that you have been moving around a lot more than usual N ot at all T houghts that you would be better off or of hurting yourself in some way N ot at all T otal Score 1 I nterpretation M inimal Depression Intervention D epression Screening Findings N egative F ollow-Up for Depression P sychiatric follow-up S uicide Risk Assessment Performed - -date H istory of Presenting Problem: Depression screening done Christina Servin, a 60-year-old male, presented for a chronic condition follow-up focused on anxiety and sleep disturbances. 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 He reflected on the challenges of aging, coping with past experiences, and the stressors associated with his professional environment. Despite these ongoing struggles, he expressed a desire to reduce or discontinue some of his medications and was clear that he did not wish to increase any doses at this time. 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 In addition to anxiety, he reported significant sleep disturbances, including difficulty falling asleep, frequent dreams and nightmares, and daytime drowsiness. These issues are compounded by his demanding work schedule and the inability to unwind after long days. He has experimented with various sleep aids, such as melatonin and Trazodone, but found their effects inconsistent and discontinued some due to adverse reactions. He denied any current blood pressure or cholesterol problems. His history includes previous trials of Seroquel and Quetiapine for sleep, which were stopped due to side effects. He continues to use melatonin and Trazodone as needed and remains open to exploring new options for managing nightmares. His spouse, a school nurse, and his long work hours further contextualize his ongoing sleep challenges. D epression Screening: NAVNEET-7 (2018 Edition) F eeling nervous, anxious, or on edge S everal days N ot being able to stop or control worrying?Not at all W orrying too much about different things N ot at all T rouble relaxing N ot at all B eing so restless that it is hard to sit still N ot at all B ecoming easily annoyed or irritable N ot at all F eeling afraid as if something awful might happen N ot at all T otal NAVNEET-7 Score 1 I f you checked any problems, how difficult have they made it for you to do your work, take care of things at home, or get along with other people? N ot difficult at all I nterpretation of Total ( 0 to 4) No Anxiety * Medical History: Problems: Chronic alcoholism in remission Generalized anxiety disorder Mild recurrent major depression Moderate recurrent major depression , Insomnia Medical History Verified * Surgical History: Repair of esophagus ([id number]) Shoulder joint surgery (15631) Partial meniscectomy of knee ([id number]) Surgical History verified. * Hospitalization/Major Diagno stic Procedure: Denies Past Hospitalization. Hospitalization Verified. * Family History: M other: . B patti: Alcohol abuse . F amily History Verified.. Mother : (nine years ago). * Social History: T obacco Use: T obacco Control (Standard) T obacco use: N onsmoker M igrated Social History: M igrated Social History: Alcohol Intake: None 01/27/2023,Tobacco Years: Never smoker 09/14/2021. D rug/Alcohol: D rugs H ave you used drugs other than those for medical reasons in the past 12 months? N o Do you smoke marijuana?: Denies. Do you drink alcohol?: Yes. AUDIT-C (Standard) D id you have a drink containing alcohol in the past year? N o P oints 0 I nterpretation N egative H ousehold: H ousehold M arital status: m arried N umber of adults in household: 2 N umber of children in household: 3 M iscellaneous: S afety issues D o you feel safe at home? 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 S ocial History Verified. O ccupation: [employer], previously worked in [employer]. * Medications: T akingbuPROPion HCl ER (XL) 300 MG Tablet Extended Release 24 Hour 1 tablet in the morning Orally Once a day traZODone HCl 50 MG Tablet 0.5 tablet at bedtime Oral Once a day Vitamin B-1 100 MG Tablet 1 tablet in the morning Oral Once a day , stop date 5clonazePAM 0.5 MG Tablet 1 tablet Oral Twice a day Esomeprazole Magnesium 40 MG Capsule Delayed Release 1 capsule 1/2 to 1 hour before morning meal Oral Once a day Rosuvastatin Calcium 5 MG Tablet TAKE 1 TABLET BY MOUTH EVERY DAY Oral Once a day Venlafaxine HCl ER 75 MG Capsule Extended Release 24 Hour 3 capsule every mornining Oral Once a day busPIRone HCl 10 MG Tablet 1 tablet Oral Twice a day As needed, stop date 05/30/2025Taking buPROPion HCl ER (XL) 300 MG Tablet Extended Release 24 Hour 1 tablet in the morning Orally Once a day Taking traZODone HCl 50 MG Tablet 0.5 tablet at bedtime Oral Once a day Taking Vitamin B-1 100 MG Tablet 1 tablet in the morning Oral Once a day , stop date 05/30/2025Taking clonazePAM 0.5 MG Tablet 1 tablet Oral Twice a day Taking Esomeprazole Magnesium 40 MG Capsule Delayed Release 1 capsule 1/2 to 1 hour before morning meal Oral Once a day Taking Rosuvastatin Calcium 5 MG Tablet TAKE 1 TABLET BY MOUTH EVERY DAY Oral Once a day Taking Venlafaxine HCl ER 75 MG Capsule Extended Release 24 Hour 3 capsule every mornining Oral Once a day Taking busPIRone HCl 10 MG Tablet 1 tablet Oral Twice a day As needed, stop date 05/30/2025Not-TakingThiamine HCl 100 MG Tablet Oral Medication List reviewed and reconciled with the patientNot-Taking Thiamine HCl 100 MG Tablet Oral Medication List reviewed and reconciled with the patient * Allergies: N .K.D.ANichoyesAllergies Verified. Objective: * Vitals: B P:102/72mm Hg, HR:121/min, Wt:175lbs, Wt-k.38 kg, Ht: 67.00 in, Ht-cm: 170.18 cm, BMI:27.41Index, Body Surface Area: 1.94. * Examination: P sychiatry: Appearance: w ell-groomed, well-nourished, ... Affect / mood: a ppropriate, full range. Attention: g ood. Attitude: c ooperative. Suicidal ideation: n one. Memory status: n o impairment noted. Degree of awareness of surroundings: w ithin normal limits.? Delusions: n o. Hallucinations: n o. Insight: g ood. Intellectual functioning: n o impairment noted. Judgement: g ood. Orientation: a wake, alert and oriented x 3. Perceptual disorders: n o perceptual disorder noted. Psychomotor activity: w ithin normal range. Speech / language: a ppropriate pitch/modulation, clear and coherent, normal rate, volume, and articulation (RVR), proper grammar used. Thought content: a ppropriate. Thought process: i ntact. Assessment: * Assessment: 1. G eneralized anxiety disorder - F41.1 (Primary) 2 . M DD (recurrent major depressive disorder) in remission - F33.40 3 . I nsomnia, unspecified type - G47.00 Plan: * Treatment: 2. M DD (recurrent major depressive disorder) in remission Continue buPROPion HCl ER (XL) Tablet Extended Release 24 Hour, 300 MG, 1 tablet in the morning, Orally, Once a day, 30 days, 30 Tablet, Refills 3. 3. I nsomnia, unspecified type Continue traZODone HCl Tablet, 50 MG, 0.5 tablet at bedtime Oral Once a day, 30 days, 30 Tablet, Refills 3; S tart Prazosin HCl Capsule, 1 MG, 1 capsule at bedtime, Orally, Once a day, 30 days, 30. Notes: Difficulty sleeping, frequent dreams and nightmares, and daytime drowsiness. Trouble winding down after long workdays. Has tried melatonin and Trazodone with inconsistent results. Previously tried Seroquel and Quetiapine for sleep, discontinued due to side effects. Open to trying new options for nightmares. - Continue Trazodone 50 mg as needed for sleep. - Start Prazosin for nightmares, monitor for lightheadedness and dizziness. 4. O thers Continue clonazePAM Tablet, 0.5 MG, 1 tablet, Oral, Twice a day, 30 days, 60 Tablet, Refills 3;?Continue Venlafaxine HCl ER Capsule Extended Release 24 Hour, 75 MG, 3 capsule every mornining, Oral, Once a day, 30 days, 90 Capsule, Refills 3. * Procedure Codes: 1 036F TOBACCO [id number]-[id number] BEHAV ASSMT W/SCORE & DOCD/STAND INSTRUMENT * Preventive Medicine: Screenings: D epression screening Have you had a recent depression screening? Y es * Follow Up: 6 Weeks Billing Information: * Visit Code: 75352 OFFICE OUTPATIENT VISIT 25 MINUTES DETAILED HISTORY AND EXAM/MODERATE MEDICAL DECISION MAKING. * Procedure Codes: 1036F TOBACCO NON-USER. 51349 BEHAV ASSMT W/SCORE & DOCD/STAND INSTRUMENT. * Electronic signature of ANNA FloresHNP on 05/25/2025 at 08:04 AM CDT Sign off status: Pending * Provider: Melisa Singh Date: Generated for Alison nevarez/Manuela/Jamarcus on: 07/25/2024 08:04 AM CDT
--- OUTSIDE RECORDS SUMMARY | 2025-05-25 08:05 | XMS_ITS | Clinical Summary ---
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 Gender Identity Not on file Sexual Orientation Not on file Obstetrics History Last Filed Vital Signs Vital Sign Reading Time Taken Comments Blood Pressure 112/79 12/10/2024 2:41 PM CDT Pulse 84 12/10/2024 2:41 PM CDT Temperature 36.3 C (97.3 F) 12/10/2024 2:41 PM CDT Respiratory Rate 16 12/10/2024 2:41 PM CDT Oxygen Saturation 97% 12/10/2024 2:41 PM CDT Inhaled Oxygen Concentration - - Weight 79.3 kg (174 lb 13.2 oz) 12/10/2024 2:41 PM CDT Height 168.4 cm (5' 6.3) 12/10/2024 2:41 PM CDT Body Mass Index 27.96 12/10/2024 2:41 PM CDT Plan of Treatment Health Maintenance Due Date Last Done Comments Colon Cancer Screening-Colonoscopy 1965 Depression Screening 1965 Hepatitis C Screening 1965 Prostate Cancer Screening-PSA 1964 DTaP/Tdap/Td Vaccine (1 - Tdap) 1975 Hepatitis B Screening 1982 Regular Well Visit/Exam 18-64 1982 Zoster Vaccine (1 of 2) 2014 Covid-19 Vaccine (3 - 2024-2 6 season) 2025 11/05/2021, 09/26/2020 Influenza Vaccine (#1) 2025 4, 05/09/2023 Pneumococcal vaccine <65 Aged Out No longer eligible based on patient's age to complete this topic Insurance [facility] Address: [place] [address] [facility]/PPO Address: [place] [address] Care Teams Horse Trainer Relationship Specialty Start Date End Date Jadyn Melton MD PCP - General Family Medicine 11/28/24
--- OUTSIDE RECORDS SUMMARY | 2025-05-25 08:05 | XMS_ITS | Clinical Summary ---
Author Organization [facility] Address [address] [place] [id number] Care Team Providers Care Sas Etl Developer Name Role Phone Unavailable Primary Care Provider [...] of 2) 2014 COVID-19 Vaccine ( - 2024-2 6 season) 2025 Influenza Adult (#1) 2025 RSV Immunization or 60+ Years (1 - 1-dose 75+ series) 2039 Hepatitis A Vaccines Aged Out No long er eligible based on patient's age to complete this topic Meningococcal B Vaccine Aged Out No l onger eligible based on patient's age to complete this topic Meningococcal Vaccine Aged Out No chula clif eligible based on patient's age to complete this topic RSV Immunizations Under 20 Months Aged Out No longer eligible based on patient's age to complete this topic
--- OUTSIDE RECORDS SUMMARY | 2025-05-25 08:05 | XMS_ITS | Patient Health Record ---
Author Organization [facility] [employer] Address [address] [facility] [address] [place] [address] Care Team Providers Care Television Program Director Name Role Phone Jadyn Melton MD Primary Care Provider Camilla Aviles Unavailable [phone] Haley Singh Unavailable [phone] Allergies No Known Allergies Results Component Value Reference Range Notes UDT Reviewed date:10/08/2024 05:16:44 PM Interpretation: Performing Lab: Notes/Report: Amphetamine (AMP) NEG 0 - 1000 ng/ml Buprenorphine (BUP) NEG 0 - 10 ng/ml Oxazepam (BZO) NEG 0 - 300 ng/ml Cocaine (SANDRA) NEG 0 - 300 ng/ml Methamphetamine (mAMP) NEG 0 - 300 ng/ml Methylenedioxymethamphetamine (MDMA) NEG 0 - 500 ng/ml Morphine (MOP) NEG 0 - 25 ng/ml Methadone (MTD) NEG 0 - 300 ng/ml Oxycodone (OXY) NEG 0 - 300 ng/ml THC NEG 0 - 50 ng/ml x NEG 0 - 1000 ng/ml x NEG 0 - 1000 ng/ml x NEG 0 - 300 ng/ml x NEG 0 - 300 ng/ml x NEG 0 - 300 ng/ml Reason For Referral No Information Medications Medication SIG (Take, Route, Frequency, Duration) Notes Start Date End Date Status Prazosin HCl 1 MG Capsule 1 capsule at bedtime Orally Once a day; Duration: 30 days 05/24/2025 06/23/2025 Active clonazePAM 0.5 MG Tablet 1 tablet Oral T wice a day; Duration: 30 days 05/24/2025 Active Thiamine HCl 100 MG Tablet Oral; Duration: 30 Days Not-Taking Venlafaxine HCl ER 75 MG Capsule Extended Release 24 Hour 3 capsule every mornining Oral Once a day; Duration: 30 days Active buPROPion HCl ER (XL) 300 MG [...] Once a day; Duration: 90 days Active Rosuvastatin Calcium 5 MG Tablet TAKE 1 TABLET BY MOUTH EVERY DAY Oral Once a day; Duration: 30 days Active Vitamin B-1 100 MG Tablet 1 tablet in the morning Oral Once a day; Duration: 90 days 05/30/2025 Active busPIRone HCl 10 MG Tablet 1 tablet Oral Twice a day; Duration: 30 days As needed Active Immunizations Vaccine Route Administration Date Status Comme nts [employer] Covid-19 Vaccine Unknown 09/26/2020 Administere d [facility] Covid-19 Vac cine 2nd dose Unknown 11/05/2021 Administered Social History Tobacco Use: Social History Observation [...] Info Options Details Miscellaneous: 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 Den ies Do you drink alcohol? 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 [employer], previously worked in [employer] Problems Problem Type SNOMED Code ICD Code Onset Dates Problem Status W/U Status Risk Notes Problem Chronic alcoholism in remission (183434268) Alcohol dependence, in remission (F10.21) Active confirmed Problem Moderate recurrent major depression (88855207) Major depressive disorder, recurrent, moderate (F33.1) Active confirmed Problem Generalized anxiety disorder (24059172) Generalized anxiety disorder (F41.1) Active confirmed Problem Insomnia (353264847) Insomnia, unspecified type (G47.00) Active confirmed Problem Recurrent major depression (95398466) MDD (recurrent major depressive disorder) in remission (F33.40) Active confirmed Vital Signs Heart Rate 121 /min 05/24/2025 Height-cm 170.18 cm 05/24/2025 Blood pressure diastolic 72 mm Hg 05/24/2025 Weight-kg 79.38 kg 05/24/2025 Height 67.00 in 05/24/2025 Blood pressure systolic 102 mm Hg 05/24/2025 Weight 175 lbs 05/24/2025 BMI 27.41 kg/m2 05/24/2025 Encounters Encounter Location Date Provider Diagnosis [employer] [place] [id number] [facility] [address] [facility] [address] [place] [address] 05/24/2025 Haley Singh MDD (recurrent major depressive disorder) in remission F33.40 ; Generalized anxiety disorder F41.1 and Insomnia, unspecified type G47.00 [facility] [employer] 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 ; Encounter for screening for cardiovascular disorders Z13.6 and Encounter for screening for depression Z13.31 [facility] [employer] [place] [address] [place] [address] [place] [address] 11/19/2024 Camilla Brito [facility] [employer] [place] [address] [place] [address] [place] [address] 01/09/2025 Camilla Brito Generalized anxiety disorder F41.1 ; MDD (recurrent major depressive disorder) in remission F33.40 ; Alcohol dependence, in remission F10.21 ; Insomnia, unspecified type G47.00 ; Negative depression screening Z13.31 ; Encounter for screening for cardiovascular disorders Z13.6 and Encounter for screening for depression Z13.[address] [employer] [facility] [address] [place] [address] [place] [address] 03/01/2025 Camilla Brito Generalized anxiety disorder F41.1 ; MDD (recurrent major depressive disorder) in remission F33.40 ; Insomnia, unspecified type G47.00 and Alcohol dependence, in remission F10.[address] [facility] [address] [place] [address] 10/04/2024 Camillakaterina Brito [address] [facility] [address] [place] [address] 12/04/2024 Camillakaterina Brito Major depressive disorder, recurrent, moderate F33.[address] [facility] [address] [place] [address] 12/04/2024 Camilla Brito Generalized anxiety disorder F41.1 Assessments Encounter Date Diagnosis (ICD Code) Assessment Notes Treatment Notes Treatment Clinical Notes Section Notes 10/08/2024 Generalized anxiety disorder (ICD-10 - F41.1) 12/04/2024 Major depressive disorder, recurrent, moderate (ICD-10 - F33.1) 12/04/2024 Generalized anxiety disorder (ICD-10 - F41.1) 01/09/2025 Generalized anxiety disorder (ICD-10 - F41.1) 01/09/2025 MDD (recurrent major depressive disorder) in remission (ICD-10 - F33.40) on effexor 225 mg from PCP on clonazepam from PCP 03/01/2025 Generalized anxiety disorder (ICD-10 - F41.1) 03/01/2025 MDD (recurrent major depressive disorder) in remission [...] Continue Fuspro 10 mg as prescribed. 05/24/2025 MDD (recurrent major depressive disorder) in remission (ICD-10 - F33.40) 05/24/2025 Insomnia, unspecified type (ICD-10 - G47.00) [...] for nightmares, monitor for lightheadedness and dizziness. 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 Major Depressive Disorder Assessment: Patient reports longstanding depressed mood and decreased motivation. He denies suicidal thoughts, hallucinations, paranoia, or delusions. Current medications include Wellbutrin XR 150 mg and venlafaxine 75 mg. Patient has struggled with concentration issues, though previous ADHD testing was not supportive of diagnosis. Sleep disturbances are present, primarily difficulty falling asleep. Appetite is reported as normal. Plan: - Increase bupropion XR (Wellbutrin) to 300 mg PO daily - Continue venlafaxine 75 mg daily (from PCP) - Follow up in 6 weeks Generalized Anxiety Disorder Assessment: Patient endorses significant anxiety and issues controlling worry. Currently prescribed clonazepam 0.5 mg BID PRN from PCP Plan: - Continue buspirone 10 mg PO BID for anxiety - Continue clonazepam 0.5 mg PO BID PRN (from PCP) Alcohol Use Disorder, in remission Assessment: Patient has a history of alcoholism but reports continued abstinence from alcohol since January 2023. Currently taking vitamin B 100 mg daily for chronic alcohol use. Plan: - Continue vitamin B 100 mg PO daily 01/09/2025 Other Christina Servin, male patient with history of alcoholism (sober since January 2023), depression, and anxiety, presents for one-month follow-up after Wellbutrin dose increase, reporting improved mood but ongoing sleep issues. Major Depressive Disorder Assessment: Patient reports improvement in depressed mood and motivation following increase of bupropion XR to 300 mg. He notes better energy levels and increased physical activity. No current suicidal ideation. Some residual symptoms persist, including decreased appetite. Plan: - Continue bupropion XR 300 mg PO daily in the morning - Follow up in 4-6 weeks to reassess mood and medication efficacy Generalized Anxiety Disorder Assessment: Patient continues to experience anxiety symptoms, managed with current medication regimen. No specific worsening reported. Plan: - Continue buspirone 10 mg PO twice daily Insomnia with Vivid Dreams Assessment: Patient reports ongoing sleep disturbances, including vivid dreams and possible REM sleep behavior disorder (acting out dreams). Previous use of quetiapine resulted in morning drowsiness, interfering with daytime functioning. Plan: - Discontinue quetiapine from PCP - Start trazodone 50 mg PO at bedtime - May adjust dose from 25 mg (half tablet) to 100 mg (two tablets) as needed - Follow up in 4-6 weeks to assess efficacy and tolerability of trazodone History of Alcohol Use Disorder Assessment: Patient reports maintained sobriety since January 2023. Plan: - Continue current management - Encourage ongoing abstinence 03/01/2025 Other Christina Servin, male patient, presents for follow-up of anxiety and depression management, reporting overall improvement in mood and readiness to return to school. Anxiety Assessment: Patient reports good overall mood and is managing anxiety with as-needed medications. He is taking buspirone and clonazepam twice daily as needed. The venlafaxine dosage was previously increased from 2 to 3 capsules daily for anxiety management. Patient expresses hope for continued improvement and eventual medication reduction. Plan: - Continue venlafaxine 75 mg, 3 capsules daily - Emphasize importance of not missing doses - Continue buspirone, twice daily as needed - Continue clonazepam, twice daily as needed - Advised to take second dose if needed, but can skip if unnecessary - Follow up in 3 months to reassess anxiety management and medication regimen Depression Assessment: Patient reports good mood and is ready to return to school, suggesting improvement in depressive symptoms. Current management includes venlafaxine and bupropion. Plan: - Continue venlafaxine 75 mg, 3 capsules daily - Continue bupropion XR 300 mg daily - Follow up in 3 months to reassess depression management and medication regimen Insomnia Assessment: Patient tried trazodone 50 mg for sleep but experienced nightmares after two doses, leading to discontinuation. Reports current sleep is not too bad without medication. Plan: - Discontinue regular use of trazodone - Trazodone 50 mg available for as-needed use - Advised to try half dose (25 mg) if attempting again - Monitor sleep quality and discuss at next follow-up Medical Decision Making Christina Servin is a male patient with a history of anxiety and depression, currently managing his symptoms with medication. The patient reported good overall mood and sleep, despite experiencing nightmares with trazodone. Clinical reasoning focused on medication management, particularly the patient's response to trazodone for sleep and his current regimen of buspirone and clonazepam for anxiety, and venlafaxine and bupropion for depression. The decision to maintain the current medication regimen was based on the patient's reported stability and readiness to return to school. The clinician considered the potential for dose reduction in the future, contingent on the patient's continued improvement and ability to manage symptoms while reintegrating into his school routine. Plan Of Treatment Next Appt Details Provider Name:Haley harmon, 07/01/2025 04:00:00 PM, [address] [facility] [address] [facility] [address], [place], [address], Insurance Providers Payer Name Payer Address Payer Phone Subscriber Number Group Number Insured Name Patient Relationship to Insured Coverage Start Date Coverage End Date [facility] [address] [place] [phone] [id number] DAVE SERVIN Spouse - patient is the spouse of the insured Medical (General) History Medical History History ICD Code Problems: Chronic alcoholism in [facility] Generalized anxiety disorder Mild recurrent major depression Moderate recurrent major depression , Insomnia Surgical History Surgery Date(Month/Year) Repair of esophagus (17320188) Shoulder joint surgery (41186) Partial meniscectomy of knee (262856420)
--- OUTSIDE RECORDS SUMMARY | 2025-05-25 08:05 | XMS_ITS | Clinical Summary ---
Author Organization [facility] [employer] Address [address] [place] [address] Care Team Providers Care Video Editing Intern Name Role Phone Unavailable Primary Care Provider Unavailabl e Source Comments [facility] [employer],non-owned Affiliates and Associated Physician Practices is amultiple site organization consisting of ambulatory clinics and hospital sitesin [place], [place], [place] and [place]. This disclosure is being madepursuant to the Care Everywhere program and may not contain all information available regarding this patient. Last updated 18.[facility] [employer] Social History Tobacco Use Types Packs/Day Years [...] 2014 ZOSTER VACCINE (1 of 2) 2014 DEPRESSION SCREENING 07/25/2024 COVID-19 VACCINE (1 - 2023-2 5 season) 2025 INFLUENZA VACCINE (#1) 2025 Respiratory Syncytial Virus (RSV) Vaccine Pt: [...] patient's age to complete this topic Insurance [facility]
--- OUTSIDE RECORDS SUMMARY | 2025-05-25 08:05 | XMS_ITS | Encounter Summary ---
Author Organization [facility] Address [address] [place] [address] Care Team Providers Care Commercial Marketing Specialist Name Role Phone Unavailable Primary Care Provider Unavailabl e Encounter Details Date Type Department Care Team (Late st Contact Info) Description 04/02/2024 Lab Requisition [facility] - DermPath Lab [address] [place] [address] Emiliana Gabriel DO [address] [facility] [address] [place] [address] Social History Tobacco Use Types Packs/Day Years [...] PM CDT) Case Report Dermatopathology Report Case: [id number] Authorizing Provider: Emiliana Gabriel DO Collected: 04/02/2024 02:13 PM Ordering Location: [facility] - Received: 04/03/2024 01:19 PM DermPath Lab Pathologist: Shamika Elliott MD Specimen: Skin, posterior neck 4 4:42 PM CDT DERMATOPATHOLOGY LABORATORY Final Diagnosis Specimen A. SKIN, posterior neck: HEALING SKIN CHANGES (L90.5) 4 4:42 PM CDT DERMATOPATHOLOGY LABORATORY at 1642 CDT Clinical History PN r/o NMSC 4 4:42 [...] characteristic determined by the Dermatopathology Laboratory at [facility], directed by Dr. Nestor Elliott. These tests need not be, and therefore are not, approved by the [place] Food and Drug Administration. The tests are used for clinical purposes. Billing Codes Specimen Charges Stain Charges 22821 1 4 4:42 PM CDT DERMATOPATHOLOGY LABORATORY Embedded Images 4 4:42 PM CDT DERMATOPATHOLOGY LABORATORY Pathology/Cytolo gy TISSUE SPECIMEN FROM SKIN / Unknown 04/02/2024 2:13 PM CDT 04/03/2024 1:19 PM CDT us Emiliana Gabriel DO LAB - PATHOLOGY/CYTOLOGY ORDERABLES Final Result DERMATOPATHOLOGY LABORATORY [facility] - Department of Dermatology [address], [address] [phone] documented in this encounter Visit Diagnoses Not on filedocumented in this encounter
[2025-05-25 09:36] LABS: Free T4 Free Thyroxine 0.63 ng/dL (0.78-2.19)
[2025-05-25 09:45] LABS: Alanine Aminotransferase 28 U/L (6-50); Albumin Level 4.3 g/dL (3.5-5.1); Alkaline Phosphatase 76 U/L (38-126); Anion Gap 6 mmol/L (4-12); Aspartate Amino Transferase 27 U/L (17-59); Bilirubin,Total 0.6 mg/dL (0.2-1.3); Blood Urea Nitrogen 15 mg/dL (9-20); Calcium 8.8 mg/dL (8.4-10.2); Carbon Dioxide 31 mmol/L (22-30); Chloride 102 mmol/L (98-107); Cholesterol 191 mg/dL (0-200); Estimated Glomerular Filt Rate > 60; Glucose 116 mg/dL (65-110); HDL Direct 61 mg/dL; Potassium 4.4 mmol/L (3.4-5.0); Sodium 139 mmol/L (137-145); Total Protein 7.1 g/dL (6.3-8.2); Triglycerides 85 mg/dL (<150)
[2025-05-25 10:16] LABS: Prostate Specific Antigen 0.7 ng/mL (< OR = 4.0); Thyroid Stimulating Hormone 0.768 uIU/mL (0.465-4.680)
== END 2025-05-25 08:02 | disposition home or self-care (01) ==
LOC: ANHLAB 08:03
PROVIDERS: PCP Family Medicine Adolescent Medicine; Visit Provider Student in an Organized Health Care Education/Training Program
DX: E78.5 Hyperlipidemia, unspecified (principal); R53.83 Other fatigue; F41.9 Anxiety disorder, unspecified; F32.9 Major depressive disorder, single episode, unspecified; Z12.5 Encounter for screening for malignant neoplasm of prostate
CPT/HCPCS: 36415; 80053; 80061; 84153; 84439; 84443; G0103